=== PATIENT | male | born 1955 | race Caucasian/White ===

== ENCOUNTER 2019-05-29 12:34 | Emergency (ER) | payer MEDICARE ==
[~2019-05-29] VITALS: Ht 170.2 cm; Wt 82.6 kg
[2019-05-29 12:46] VITALS: Ht 170.2 cm; Wt 82.6 kg
--- NOTE | 2019-05-29 13:17 | EN ---
Date/Time of Note Date/Time of Note DATE: 05/29/19 TIME: 13:16 ER Progress Note 64-year-old male presents for dizziness and headache x4 days. States that headache is new. No history of headache. He states that the headache is about a 10 out of 10. He was seen by his primary care physician today and was told to come to the ER for head CT. He states that he had blood work done last week which was noted to be normal. Medical screening exam was initiated and labs/imaging test ordered. Patient will be seen by another provider. MALICK CM DO May 29, 2019 13:17
[2019-05-29] MEDS ORDERED: LAMO150T3 PO (14:45)
--- NOTE | 2019-05-29 16:23 | ERD ---
ER Documentation Chief Complaint Chief Complaint dizziness x4 days, no pain/n/v. referred by MD BURGER This is a 64-year-old male with no significant past medical history who is presenting with 4 days of a waxing and waning pressure-like frontal headache with occasional lightheadedness. The patient reports that he feels off. At times, he has felt imbalanced. The patient reports that his symptoms have come and gone, and he currently everything has resolved. When the patient symptoms are at its worst, the patient does not endorse everything spinning around him. He simply feels fatigued and "out of it."The patient currently has no complaints. He was evaluated by his primary care physician, Dr. Chinchilla, who requested that the patient come into the emergency department for dizziness, headaches and a question of vertigo. The patient does report recently restarting Lamictal for depression symptoms. He is wondering if this could be related. The patient denies feeling sick recently. The patient denies fever or chills. The patient does not endorse neck or back pain. The patient denies lightheadedness or dizziness. The patient has had no chest pain or trouble breathing. The patient denies nausea or vomiting. The patient denies abdominal pain. The patient denies changes to bowel movements or urination. The patient has had no focal deficits. The patient has had no weakness or numbness or tingling to the face or extremities. He is ambulatory without any imbalance or difficulty. ROS All systems reviewed and are negative except as per history of present illness. Medications Home Meds Reported Medications Lamotrigine* (Lamictal*) 150 Mg Tablet, 150 MG PO DAILY, TAB 05/29/19 Allergies Allergies: Coded Allergies: No Known Allergy (Unverified , 05/29/19) PMhx/Soc Medical and Surgical Hx: pt denies Medical Hx, pt denies Surgical Hx Hx Alcohol Use: Yes Hx Substance Use: No Hx Tobacco Use: Yes Smoking Status: Current every day smoker FmHx Family History: No diabetes Physical Exam Vitals Vital Signs Date Temp Pulse Resp B/P (MAP) Pulse Ox O2 O2 Flow FiO2 Time Delivery Rate 05/29/19 97.8 65 16 137/67 98 12:46 (90) Physical Exam Const: No apparent distress, well-developed, well-nourished Head: Normocephalic, Atraumatic Eyes: Normal Conjunctiva. Extraocular movements intact. Pupils equal, round and reactive to light ENT: Normal External Ears, Nose and Mouth. Neck: Full range of motion. No meningismus. Resp: Clear to auscultation bilaterally, No wheezes, rales or rhonchi Cardio: Regular rate and rhythm. No murmurs, rubs or gallops Abd: Soft, non tender, non distended. Normal bowel sounds Skin: No petechiae or rashes Back: No midline tenderness. No CVA tenderness Ext: No cyanosis, or edema Neur: Awake and alert, oriented 4. Cranial nerves intact. No facial droop. Normal strength, sensation and coordination. Psych: Normal Mood and Affect Result Diagram: 05/29/19 1502 05/29/19 1502 Results 24 hrs Laboratory Tests Test 05/29/19 15:02 White Blood Count 6.8 10^3/ul Red Blood Count 5.44 10^6/ul Hemoglobin 15.1 g/dl Hematocrit 47.0 % Mean Corpuscular Volume 86.4 fl Mean Corpuscular Hemoglobin 27.8 pg Mean Corpuscular Hemoglobin Concent 32.1 g/dl Red Cell Distribution Width 13.2 % Platelet Count 187 10^3/UL Mean Platelet Volume 11.3 fl Immature Granulocytes % 0.300 % Neutrophils % 45.1 % Lymphocytes % 37.4 % Monocytes % 8.1 % Eosinophils % 7.8 % Basophils % 1.3 % Nucleated Red Blood Cells % 0.0 /100WBC Immature Granulocytes # 0.020 10^3/ul Neutrophils # 3.1 10^3/ul Lymphocytes # 2.6 10^3/ul Monocytes # 0.6 10^3/ul Eosinophils # 0.5 10^3/ul Basophils # 0.1 10^3/ul Nucleated Red Blood Cells # 0.0 10^3/ul Prothrombin Time 13.4 Sec Prothrombin Time Ratio 1.0 INR International Normalized Ratio 1.01 Sodium Level 142 mmol/L Potassium Level 4.6 mmol/L Chloride Level 105 mmol/L Carbon Dioxide Level 30 mmol/L Anion Gap 7 Blood Urea Nitrogen 14 mg/dl Creatinine 1.07 mg/dl Est Glomerular Filtrat Rate mL/min > 60 mL/min Glucose Level 87 mg/dl Calcium Level 9.6 mg/dl Troponin I < 0.012 ng/ml Procedures/MDM MDM The patient's presentation warrants further investigation. Previous medical records, if available, were reviewed. LABS The patient's laboratory testing was obtained and reviewed. No emergent treatment was required unless described below. CBC: No E/o systemic infection or severe anemia or thrombocytopenia Chemistry: No E/o severe acidosis or alkalosis or renal failure or diabetic ketoacidosis PT/INR: No E/o significant coagulopathy EKG EKG read by me: Rate/Rhythm: Sinus bradycardia at 57 bpm Intervals: Normal [place]: Normal Impression: No evidence of acute ischemia. Sinus bradycardia. IMAGING Imaging and Radiology interpretation reviewed. CT head FINDINGS: There is no intracranial hemorrhage, mass effect, or midline shift. No extra-axial fluid collection is seen. The ventricles and sulci are normal in size and configuration. The density of the brain is normal, and the belcher white matter differentiation appears well-preserved. The visualized scalp and calvari um are normal. The bilateral orbits are normal. The bilateral paranasal sinuses demonstrate mild chronic bilateral ethmoid sinus disease and sphenoid sinus disease. IMPRESSION: 1. No evidence of acute intracranial hemorrhage, infarcts, or acute intracranial pathology. 2. Normal noncontrast head CT. 3. Chronic bilateral ethmoid and sphenoid sinus disease. Electronically viewed and signed by Mary Umana MD, on 05/29/2019 14:40 TREATMENT/DISPOSITION The patient presents with symptoms concerning for possible near syncope. The patient does endorse a headache. The patient presents with a headache. Differential diagnosis includes migraine, tension headache, cluster headache. Th e patient has no focal deficits. The neurologic exam is reassuring. I have decreased suspicion for cerebral ischemia. The patient is not dizzy or imbalanced. He is ambulatory without issue. His coordination is normal. I have very low suspicion for posterior circulation pathology. There was no t rauma or injury. There is no personal or family history of cerebral aneurysm. This is not the worst headache of the patient's life. It was not acutely severe. It is been progressive in nature. I have decreased suspicion for SAH or other ICH. I have low suspicion for temporal arteritis, cavernous venous thrombosis, subdural hematoma, epidural hematoma, meningitis. The patient has a reassuring physical exam. The patient is not clinically orthostatic. The patient is not dizzy. I do not see evidence of vertigo at this time, but this certainly a possibility as its presentation can be intermittent in nature. The patient has no signs of emergent or symptomatic anemia. The patient does not have any emergent electrolyte or metabolic emergencies. I have decrease suspicion for a thyroid disorder. The patient is not toxic appearing. I have decreased suspicion for an infectious etiology of symptoms. The patient's EKG and troponin are reassuring. I have low suspicion for acute coronary syndrome. I do not see evidence of any emergent cardiac arrhythmia, which includes but is not limited to heart block, Brugada syndrome or WPW. The patient is mildly bradycardic, but it has been stable with normal blood pressures. I doubt this to be the etiology of his symptoms. The patient has no heart murmurs or rales. I have low suspicion for hypertrophic cardiomyopathy. I do not see evidence of CHF. The patient does not endorse any chest or pleuritic pain. The history is negative for bleeding or clotting disorders. The patient has not been involved in any recent prolonged trips or surgeries or hospitalizations. The patient has no calf tenderness or swelling. I have decreased suspicion for PE as the etiology of symptoms. The [place] Syncope Rule was applied and the patient was found to be low risk for a serious outcome. DISCHARGE Upon reevaluation of the patient, symptoms have improved. No emergent diagnoses were identified. At this time, I feel that the patient stable for discharge. The patient was instructed to follow-up with a primary care physician in 1-3 days. The patient will be given strict precautions with which to return to the emergency department. Prescriptions: None The patient's blood pressure was elevated at greater than 120/80 while in the emergency department. The patient was otherwise stable with no evidence of hypertensive urgency or emergency. The patient does not require admission for blood pressure control. I have discussed with the patient the risks of hypertension. I have instructed the patient to return to the ER for any new or worsening symptoms including chest pain, shortness of breath, headache, blurred vision, confusion, nausea, vomiting or LOC. I have advised the patient to follow up with the primary care physician for outpatient monitoring and treatment for hypertension in 1-3 days. Disclaimer: Inadvertent spelling and grammatical errors are likely due to EHR/dictation software use and do not reflect on the overall quality of patient care. Note that the electronic time recorded on this note does not necessarily reflect the actual time of the patient encounter. Departure Diagnosis: Primary Impression: Headache Headache type: unspecified Headache chronicity pattern: acute headache Intractability: not intractable Qualified Codes: R51 - Headache Additional Impression: Lightheadedness Condition: Stable Patient Instructions: Dizziness, Unk Cause, Near Syncope, Unknown, Self-Care for Headaches Additional Instructions: Thank you for for coming to [facility] for your care today. Please ask your nurse or provider if you have questions about your care today and do not leave until all your questions have been answered. Please use any medications given as directed and follow-up with your doctor (or the doctor you were referred to) in the next 1-3 days. If you do not have a primary care doctor you may follow up at the [facility] or [facility] (listed below). You may also use motrin and tylenol as needed for fever and/or pain unless instru cted otherwise by your provider or nurse. Indications for more urgent follow-up have been discussed, but you may return to the Emergency Department at ANY time for any worrisome or worsening symptoms. If you have abdominal pain, please know that no test or exam you received is perfect and you should follow up within 8 hours for continued pain. If you had any imaging studies today, such as an X-Ray or CT Scan, these studies will be reviewed later by a radiologist. You will be called if there are important findings that were not identified today, so make sure the contact information you provided at registration is correct. If you received any narcotic pain control medicine today, such as Vicodin, Morphine or Dilaudid, your coordination and judgment may be affected for a number of hours. Please do not drive or operate heavy machinery, and you may want someone to assist you at home. If you were given a prescription for narcotic medication, be aware that it is very addictive- use sparingly and only if necessary. PLEASE SEEK FURTHER EVALUATION AND MANAGEMENT AT YOUR DOCTORS OFFICE WITHIN THE NEXT 1-3 DAYS. IT IS YOUR RESPONSIBILITY TO MAKE AN APPOINTMENT FOR FOLOW-UP CARE. IF YOU HAVE A PRIMARY DOCTOR, PLEASE CALL THEIR OFFICE TO SCHEDULE AN APPOINTMENT FOR FOLLOW UP. IF YOU DO NOT HAVE A PRIMARY DOCTOR YOU CAN CALL OUR PHYSICIAN REFERRAL HOTLINE AT IF YOU CAN NOT AFFORD TO SEE A PHYSICIAN YOU CAN CHOSE FROM THE FOLLOWING [facility] CLINICS: [facility] [address] [facility] [address] [facility] [facility] [address] [facility] [address] [facility] [address] [facility]. [facility]. [address] WILLA NESS MD May 29, 2019 16:20
[2019-05-29 16:50] VITALS: BP 133/68; PULSE 68; RESP 16
== END 2019-05-29 16:51 | disposition home or self-care (01) ==
LOC: E/R 12:34
DX: R51 Headache (principal); F17.210 Nicotine dependence, cigarettes, uncomplicated; R00.1 Bradycardia, unspecified
CPT/HCPCS: 70450; 80048; 84484; 85025; 85610; 93005